=== PATIENT | female | born 1945 | race Caucasian/White ===

== ENCOUNTER 2019-09-04 19:44 | Inpatient (IN) | payer OTHER ==
[~2019-09-04] VITALS: Ht 149.9 cm; Wt 41.3 kg
[2019-09-04] MEDS ORDERED: ATEN25TA PO (20:00)
[2019-09-04] MEDS ORDERED: DIAZ5TAB4 PO (20:00)
[2019-09-04] MEDS ORDERED: IBUP-1955 PO (20:00)
[2019-09-04 20:38] LABS: BASOPHILS # (AUTO) 0.1 K/uL (0.0-8.0); BASOPHILS % (AUTO) 0.6 % (0.0-2.0); EOSINOPHILS % (AUTO) 0.1 % (0.0-7.0); HEMATOCRIT 27.9 % (31.2-41.9); HEMOGLOBIN 8.8 g/dL (10.9-14.3); LYMPHOCYTES # (AUTO) 0.2 K/uL (20.0-40.0); LYMPHOCYTES % (AUTO) 0.8 % (20.5-51.5); MEAN CORPUSCULAR HEMOGLOBIN 21.2 uug (24.7-32.8); MEAN CORPUSCULAR HGB CONC 32 g/dL (32.3-35.6); MEAN CORPUSCULAR VOLUME 67.2 fL (75.5-95.3); MONOCYTES # (AUTO) 0.8 K/uL (2.0-10.0); MONOCYTES % (AUTO) 3.5 % (0.0-11.0); NEUTROPHILS # (AUTO) 21.9 K/uL (1.8-8.9); PLATELET COUNT (AUTO) 463 K/uL (179-408); RED BLOOD CELL COUNT(AUTO) 4.16 MIL/uL (3.63-4.92); WHITE BLOOD COUNT (AUTO) 23.1 K/uL (3.8-11.8)
[2019-09-04] MEDS ORDERED: IBUPROFEN 600 MG TABLET PO ONE (20:45)
[2019-09-04 21:01] LABS: CARBON DIOXIDE 21 mmol/L (21-32); CHLORIDE 102 mmol/L (98-107); GLUCOSE 114 mg/dL (74-106); POTASSIUM 2.7 mmol/L (3.5-5.1); UREA NITROGEN, BLOOD 27 mg/dL (7-18)
[2019-09-04 21:02] LABS: ALKALINE PHOSPHATASE 127 U/L (50-136); ASPARTATE AMINOTRANSFERASE 14 U/L (15-37); BILIRUBIN,DIRECT 0.2 mg/dL (0.0-0.2); BILIRUBIN,TOTAL 0.4 mg/dL (0.2-1.0); CREATININE 2.1 mg/dL (0.6-1.3)
[2019-09-04 21:06] LABS: ALANINE AMINOTRANSFERASE 14 U/L (14-59); TOTAL PROTEIN, SERUM 6.4 g/dL (6.4-8.2)
[2019-09-04 21:11] LABS: BAND % (MANUAL) 15 % (0-10); LYMPHOCYTES % (MANUAL) 1 % (20-40); MONOCYTES % (MANUAL) 3 % (2-10); NEUTROPHILS % (MANUAL) 81 % (42-75)
[2019-09-04] MEDS ORDERED: IBUPROFEN 600 MG TABLET ONE (21:11)
[2019-09-04] MEDS ORDERED: POTASSIUM CHLORIDE 20 MEQ TAB.PRT.SR PO ONE (21:15)
--- NOTE | 2019-09-04 21:45 | NUR ---
Patient BP at 82/52, HR 83 with respiration of 18. Denies dizziness,[facility]. Dr Pond aware of vital signs.
[2019-09-04] MEDS ORDERED: POTASSIUM CHLORIDE 20 MEQ TAB.PRT.SR ONE (21:48)
[2019-09-04 21:51] LABS: *BILIRUBIN,URIN NEGATIVE (NEGATIVE); *BLOOD, URINE NEGATIVE (NEGATIVE); *COLOR,URINE YELLOW (YELLOW); *KETONES,URINE NEGATIVE (NEGATIVE); *UROBILINOGEN,URINE 0.2 E.U./dl (NORMAL); LEUKOCYTE ESTERASE ,URINE NEGATIVE (NEGATIVE); NITRITE, URINE NEGATIVE (NEGATIVE); PH,URINE 5.5 (5.0-8.0); UGLUCOSE NEGATIVE (NEGATIVE)
[2019-09-04 21:57] LABS: *CLARITY,URINE SLIGHTLY HAZY (CLEAR)
[2019-09-04 21:58] LABS: COARSE GRANULAR CASTS,URINE 0-3 /LPF; MUCUS,URINE MANY /LPF (0-FEW); SQUAMOUS EPITHELIAL CELL,UR FEW /HPF (NONE SEEN)
[2019-09-04] MEDS ORDERED: IV NORMAL SALINE 1000 ML BAG IV ONE (22:00)
[2019-09-04] MEDS ORDERED: CEFTRIAXONE 2 G in IV DEXTROSE 5% 100 ML IV ONE (22:00)
[2019-09-04] MEDS ORDERED: METRONIDAZOLE 500 MG/NS 100 ML PIGGYBACK IV ONE (22:00)
[2019-09-04] MEDS ORDERED: CEFTRIAXONE 1 G VIAL ONE (22:20)
[2019-09-04] MEDS ORDERED: METRONIDAZOLE 500 MG/NS 100ML 100 ML IV ONE (22:21)
--- NOTE | 2019-09-04 22:36 | NUR ---
Called [facility] for admission. Dr Sandoval from [facility] will call back to speak to Dr Pond.
--- NOTE | 2019-09-04 23:48 | NUR ---
Dr Pond speaking with Jon Sandoval. Dr Sandoval requesting for ct scan prior to being accepted.
--- NOTE | 2019-09-04 23:55 | NUR ---
Patient out of unit for ct scan via [facility].
[2019-09-05] VITALS (57 sets, daily range): BP systolic 75–160; BP diastolic 17–122
--- NOTE | 2019-09-05 00:10 | NUR ---
Patient back from ct scan with no distress noted.
[2019-09-05] MEDS ORDERED: VANCOMYCIN 1G/D5W 200 ML PIGGYBACK IV ONE (01:00)
[2019-09-05] MEDS ORDERED: VANCOMYCIN IV 200 ML ONE (01:05)
--- NOTE | 2019-09-05 01:08 | NUR ---
Dr Pond spoke with Dr Jaime simon MD who aprove patient to stay and be admitted here.
--- NOTE | 2019-09-05 01:13 | NUR ---
Dr Pond spoke to Dr Drummond surgery vocational guidance counselor for consult.
--- NOTE | 2019-09-05 01:24 | NUR ---
Dr Pond speaking with Carisa Yepez [employer] senior manager mergers & acquisitions for [employer].
[2019-09-05] MEDS ORDERED: IV 1/2NS 1000 ML 1,000 ML IV PRN ×2 (01:27→06:45)
[2019-09-05] MEDS ORDERED: MORPHINE SULFATE 2 MG/1 ML DISP.SYRIN IV PRN (01:30)
[2019-09-05] MEDS ORDERED: ONDANSETRON 4 MG/2 ML VIAL IV PRN (01:30)
[2019-09-05] MEDS ORDERED: ACETAMINOPHEN 325 MG TABLET PO PRN (01:30)
[2019-09-05] MEDS ORDERED: Z GUARD REMEDY PASTE 57 GM TUBE TOP PRN (01:30)
[2019-09-05] MEDS ORDERED: PIPERACILLIN/TAZOBACTAM/D5W 50 ML IV ONE (02:13)
--- NOTE | 2019-09-05 02:45 | NUR ---
Transfer to CCU Bed 2 via g[facility]y with no distress noted.
--- NOTE | 2019-09-05 02:50 | NUR ---
ADMITTED PT FROM ER VIA [place] W/ ADM. DX OF SEPSIS. ALERT , & ORIENTED X3. HEP LOCK INTACT ON RFA. ON RM AIR W/ O2 SAT OF 100%. PT C/O PAIN ON HER RECTUM WHEN MOVED. CALLED Sandy ERAZO FOR MEDICATION FOR PAIN.
[2019-09-05] MEDS ORDERED: PIPERACILLIN SODIUM/TAZOBACTAM 3.375 G in IV DEXTROSE 5% 50 ML IV ONE (04:15)
[2019-09-05] MEDS ORDERED: HYDROMORPHONE 1 MG/1 ML DISP.SYRIN IV PRN ×2 (04:30→08:00)
--- NOTE | 2019-09-05 04:30 | NUR ---
INSERTED ANDRADE CATH FR # 16 WITHOUT DIFFICULTY W/ CLEAR ASHLEIGH URINE. PT. REFUSED DILAUDID ORDERED STATED SHES IS ALLERGIC. CALLED Sandy ERAZO INFANT LEAD TEACHER & CAN NOT ORDER ANOTHER MED. FOR PAIN. PT WAS INFORMED, REPOSITIONED FOR COMFORTS.
[2019-09-05] MEDS ORDERED: NOREPINEPHRINE BITARTRATE 8 MG in IV NORMAL SALINE 242 ML IV PRN (06:45)
--- NOTE | 2019-09-05 06:45 | NUR ---
CALLED Sandy GOLDEN RE: LOW BP W/ ORDER.
--- NOTE | 2019-09-05 08:07 | NUR ---
Clinical pharmacy note-Vancomycin dosing per pharmacy Subjective: To start Vancomycin dosing on this patient as empiric tx(no MD note yet, ER note sepsis) Objective: BUN/Scr 27/2.1(09/03) WBC 23.1(09/03) Temp 97.6 Ht 149/86cm Wt 41.277kg Assessment/Plan: Patient had 1 gram today at 0119 in ER. Since renal function is decreased, will start dosing by level for now. Random level is on order for tomorrow am. Will follow the level for further dosing.
--- NOTE | 2019-09-05 08:20 | NUR ---
A call from Dr. Drummond and as stated by him after reviewing CT scan faxed by shift mgr rn. " There's nothing I can do to help this patient they should start arrangements to transfer her back to ."
[2019-09-05] MEDS ORDERED: ATENOLOL 25 MG TABLET PO SCH ×2 (09:00)
[2019-09-05 10:16] LABS: BASOPHILS # (AUTO) 0.1 K/uL (0.0-8.0); BASOPHILS % (AUTO) 0.6 % (0.0-2.0); EOSINOPHILS % (AUTO) 0.2 % (0.0-7.0); HEMATOCRIT 26.7 % (31.2-41.9); HEMOGLOBIN 8.5 g/dL (10.9-14.3); LYMPHOCYTES # (AUTO) 0.2 K/uL (20.0-40.0); LYMPHOCYTES % (AUTO) 1.3 % (20.5-51.5); MEAN CORPUSCULAR HEMOGLOBIN 21.4 uug (24.7-32.8); MEAN CORPUSCULAR HGB CONC 32 g/dL (32.3-35.6); MONOCYTES # (AUTO) 0.9 K/uL (2.0-10.0); MONOCYTES % (AUTO) 5.1 % (0.0-11.0); NEUTROPHILS # (AUTO) 16.1 K/uL (1.8-8.9); NEUTROPHILS % (AUTO) 92.8 % (38.5-71.5); PLATELET COUNT (AUTO) 421 K/uL (179-408); RED BLOOD CELL COUNT(AUTO) 3.99 MIL/uL (3.63-4.92); WHITE BLOOD COUNT (AUTO) 17.4 K/uL (3.8-11.8)
[2019-09-05 10:24] LABS: CARBON DIOXIDE 19 mmol/L (21-32); CHLORIDE 106 mmol/L (98-107); CREATININE 1.4 mg/dL (0.6-1.3); GLUCOSE 95 mg/dL (74-106); UREA NITROGEN, BLOOD 23 mg/dL (7-18)
[2019-09-05 10:26] LABS: POTASSIUM 2.8 mmol/L (3.5-5.1)
[2019-09-05 10:30] LABS: ALANINE AMINOTRANSFERASE 10 U/L (14-59); ALKALINE PHOSPHATASE 106 U/L (50-136); ASPARTATE AMINOTRANSFERASE 16 U/L (15-37); BILIRUBIN,TOTAL 0.4 mg/dL (0.2-1.0); CREATINE KINASE, TOTAL 333 U/L (26-192); TOTAL PROTEIN, SERUM 5.5 g/dL (6.4-8.2)
[2019-09-05] MEDS ORDERED: POTASSIUM CHLORIDE 20 MEQ in IV NS 1000 ML 1,000 ML IV PRN (11:00)
[2019-09-05] MEDS: PIPERACILLIN/TAZO 2.25 G in IV DEXTROSE 5% 50 ML IV SCH ×3 (11:41→23:33)
[2019-09-05] MEDS ORDERED: PIPERACILLIN SODIUM/TAZOBACTAM 3.375 G in IV DEXTROSE 5% 50 ML IV SCH (12:00)
[2019-09-05] MEDS ORDERED: IBUPROFEN 600 MG TABLET PO ONE (12:30)
[2019-09-05 12:52] LABS: *BILIRUBIN,URIN NEGATIVE (NEGATIVE); *CLARITY,URINE CLEAR (CLEAR); *COLOR,URINE YELLOW (YELLOW); *KETONES,URINE NEGATIVE (NEGATIVE); *UROBILINOGEN,URINE 0.2 E.U./dl (NORMAL); LEUKOCYTE ESTERASE ,URINE NEGATIVE (NEGATIVE); NITRITE, URINE NEGATIVE (NEGATIVE); PH,URINE 5.5 (5.0-8.0); UGLUCOSE NEGATIVE (NEGATIVE)
[2019-09-05 13:00] LABS: *BLOOD, URINE TRACE (NEGATIVE); BACTERIA,URINE NONE SEEN /HPF (NONE SEEN); RBC,URINE 0-3 /HPF (0-3); SQUAMOUS EPITHELIAL CELL,UR FEW /HPF (NONE SEEN); WBC,URINE 0-3 /HPF (0-3)
[2019-09-05 13:09] LABS: *CREATININE,URINE 46.2 mg/dL (30-125); *URINE TOTAL PROTEIN RANDOM 37.7 mg/dL (<150/24HR)
[2019-09-05] MEDS ORDERED: POTASSIUM CHLORIDE 20 MEQ TAB.PRT.SR PO ONE (15:15)
[2019-09-05] MEDS: POTASSIUM CHLORIDE 10 MEQ TAB.PRT.SR PO SCH ×2 (16:35→18:47)
--- NOTE | 2019-09-05 20:30 | NUR ---
ROSA KLINE NP IS HERE TO SEE PATIENT , UPDATES GIVEN ON THE PATIENT
[2019-09-05] MEDS ORDERED: DIAZEPAM 5 MG TABLET PO SCH (21:00)
[2019-09-05] MEDS ORDERED: IV NS 1000 ML 1,000 ML IV PRN (21:15)
[2019-09-06] VITALS (36 sets, daily range): BP systolic 79–135; BP diastolic 38–71
--- NOTE | 2019-09-06 01:04 | NUR ---
PATIENT IS CURRENTLY ON LEVOPHED AT 0,06 MCG , TOLERATING WELL , VS STABLE Addendum: 09/06/19 at 0104 by CORY VALVERDE RN Amended: Links added. Addendum: 09/06/19 at 0106 by CORY VALVERDE RN Amended: Links added.
--- NOTE | 2019-09-06 01:05 | NUR ---
LOC IS BEING MONITORED AND CURRENTLY SATURATING , ROOM AIR 97 % Addendum: 09/06/19 at 0106 by CORY VALVERDE RN Amended: Links added.
--- NOTE | 2019-09-06 01:06 | NUR ---
LAB WORK BEING MONITORED AND CURRENTLYON ZOAVEL ANTIBIOTIC Addendum: 09/06/19 at 0107 by CORY VALVERDE RN Amended: Links added.
[2019-09-06] MEDS: PIPERACILLIN/TAZO 2.25 G in IV DEXTROSE 5% 50 ML IV SCH ×2 (05:50→11:10)
--- NOTE | 2019-09-06 06:00 | NUR ---
patient is awake oriented , able to follow simple command with periods of confusion to place and time , incontinent with soft stool with foul smelling sloughing of light skin on the rectal , sacral area , levophed at 0.06 mcg , ns runinh at 75 ml picc ine marco
[2019-09-06 06:10] LABS: EOSINOPHILS % (AUTO) 0.4 % (0.0-7.0); HEMATOCRIT 25.2 % (31.2-41.9); HEMOGLOBIN 8.1 g/dL (10.9-14.3); LYMPHOCYTES # (AUTO) 0.2 K/uL (20.0-40.0); MEAN CORPUSCULAR HEMOGLOBIN 21.7 uug (24.7-32.8); MEAN CORPUSCULAR HGB CONC 32 g/dL (32.3-35.6); MEAN CORPUSCULAR VOLUME 67.2 fL (75.5-95.3); MONOCYTES # (AUTO) 0.4 K/uL (2.0-10.0); MONOCYTES % (AUTO) 3.1 % (0.0-11.0); NEUTROPHILS # (AUTO) 10.7 K/uL (1.8-8.9); NEUTROPHILS % (AUTO) 94.5 % (38.5-71.5); PLATELET COUNT (AUTO) 391 K/uL (179-408); RED BLOOD CELL COUNT(AUTO) 3.75 MIL/uL (3.63-4.92); WHITE BLOOD COUNT (AUTO) 11.4 K/uL (3.8-11.8)
[2019-09-06 06:38] LABS: CARBON DIOXIDE 20 mmol/L (21-32); CHLORIDE 116 mmol/L (98-107); CHOLESTEROL 87 mg/dL (<200); CREATININE 1.4 mg/dL (0.6-1.3); GLUCOSE 105 mg/dL (74-106); MAGNESIUM 2.2 mg/dL (1.8-2.4); PHOSPHOROUS 2.9 mg/dL (2.5-4.9); POTASSIUM 3.3 mmol/L (3.5-5.1); TRIGLYCERIDES 126 MG/DL (30-150); UREA NITROGEN, BLOOD 22 mg/dL (7-18)
[2019-09-06 06:43] LABS: HDL CHOLESTEROL < 10 mg/dL (40-60)
[2019-09-06 06:44] LABS: THYROID STIMULATING HORMONE 0.789 mIU/mL (0.358-3.740)
--- NOTE | 2019-09-06 06:59 | NUR ---
angelica granado notified of lab work results today particularly potasium and calcium , and aic , waiting for call back
[2019-09-06 07:30] LABS: CREATINE KINASE, TOTAL 99 U/L (26-192); VANCOMYCIN,RANDOM 7.1 ug/mL (18.0-26.0)
--- NOTE | 2019-09-06 07:30 | NUR ---
Received pt. restless agitated, having hallucinations, and attempting to get out of bed unsupervised. Patient educated on safety precautions, and at this time agreed to follow commands. At the same time patient on on her cell phone calling family members.
[2019-09-06 07:59] LABS: BAND % (MANUAL) 7 % (0-10); EOSINOPHILS % (MANUAL) 1 % (0-8); LYMPHOCYTES % (MANUAL) 1 % (20-40); MONOCYTES % (MANUAL) 1 % (2-10); NEUTROPHILS % (MANUAL) 90 % (42-75)
[2019-09-06] MEDS ORDERED: VANCOMYCIN IV 750 MG in IV DEXTROSE 5% 250 ML IV ONE (08:00)
--- NOTE | 2019-09-06 08:00 | NUR ---
While I was out the room pt. suddenly forcefully removed his Picc line access patient found bleeding, area compressed to stop bleeding. Mittens applied patient remains restless and agitated. at this time off levophed drip.
--- NOTE | 2019-09-06 08:56 | NUR ---
Clinical pharmacy note-Vancomycin dosing per pharmacy Subjective: To continue Vancomycin dosing on this 74 yo female patient as empiric tx (no MD note yet, ER note sepsis) Objective: BUN/Scr 22/1.4 WBC 11.4 Temp 97.6 Vanco random level with am labs on 09/05: 7.1 Ht 149/86cm Wt 41.277kg Assessment/Plan: Since renal function is unstable, will continue dosing by level for now. Since vanco random level today is 7.1 mcg/ml, will give vanco 750 mg IPB x1 today at 0800. Random level is on order for tomorrow am. Will follow the level for further dosing.
[2019-09-06] MEDS ORDERED: POTASSIUM CHLORIDE 20 MEQ TAB.PRT.SR PO ONE (11:15)
--- NOTE | 2019-09-06 12:19 | NUR ---
Attending KIMBER Palencia in the unit to see and examine patient. Addendum: 09/06/19 at 1222 by RONALDO GÓMEZ RN At this time a call from [facility] review and care plan discussed with attending KIMBER
--- NOTE | 2019-09-06 14:00 | NUR ---
Telephone report given to Dylon Kapoor.
[2019-09-06] MEDS ORDERED: PIPE3.379 IV (14:19)
[2019-09-06] MEDS ORDERED: RXVAN XX (14:19)
--- NOTE | 2019-09-06 14:35 | NUR ---
A call from [facility], call transfer to 2nd floor. Addendum: 09/06/19 at 1441 by RONALDO GÓMEZ RN where patient got transfer 15min. ago.
[2019-09-08 11:06] LABS: A/G RATIO 0.6 (0.7-1.7); ALBUMIN 1.7 g/dL (2.9-4.4); ALPHA-1-GLOBULIN 0.5 g/dL (0.0-0.4); ALPHA-2-GLOBULIN 0.9 g/dL (0.4-1.0); BETA GLOBULIN 0.6 g/dL (0.7-1.3); GAMMA GLOBULIN 0.8 g/dL (0.4-1.8); GLOBULIN, TOTAL 2.7 g/dL (2.2-3.9); M-SPIKE Not Observed g/dL (Not Observed)
== END 2019-09-06 16:30 | disposition short-term general hospital (02) | DRG 871 ==
LOC: ER 19:44 → CCU 09-05 02:18
PROVIDERS: ADMIT Nurse Practitioner Acute Care; ATTEND Nurse Practitioner Acute Care
PROC: 02HV33Z Insertion of Infusion Device into Superior Vena Cava, Percutaneous Approach (ICD-10-PCS; principal; 2019-09-05)
PROC: B548ZZA Ultrasonography of Superior Vena Cava, Guidance (ICD-10-PCS; 2019-09-05)
DX: A41.9 Sepsis, unspecified organism (principal); N17.0 Acute kidney failure with tubular necrosis; R65.21 Severe sepsis with septic shock; E43 Unspecified severe protein-calorie malnutrition; M72.6 Necrotizing fasciitis; C20 Malignant neoplasm of rectum; E87.0 Hyperosmolality and hypernatremia; Z68.1 Body mass index [BMI] 19.9 or less, adult; L03.818 Cellulitis of other sites; M84.48XA Pathological fracture, other site, initial encounter for fracture; D50.9 Iron deficiency anemia, unspecified; E87.6 Hypokalemia; F41.9 Anxiety disorder, unspecified; I10 Essential (primary) hypertension; Z92.21 Personal history of antineoplastic chemotherapy; E88.09 Other disorders of plasma-protein metabolism, not elsewhere classified
CPT/HCPCS: 36415; 70030-TC; 71045; 83605; 83735; 83970; 84100; 84155; 84156; 84165; 84300; 84443; 85025; 87040; 87086; 93005; A4217; A4663; C1758; G0378; J0696; J1170; J2543; J3370; J3480; J3490; J7030; J7040; J7050; J7060